=== PATIENT | female | born 1980 ===

== ENCOUNTER 2021-09-15 23:54 | Emergency (ER) | payer SELFPAY ==
[2021-09-16 00:58] LABS: Urine Blood Trace-lysed (Negative); Urine Glucose Negative (Negative); Urine Protein 1+ (Negative); Urine pH 6.5 (5.0-7.0)
[2021-09-16] MEDS ORDERED: TETANUS & DIPHTHERIA TOX,ADULT 0.5 ML VIAL ONE (01:06)
[2021-09-16] MEDS ORDERED: MORPHINE 4 MG/ML SYR ONE (01:06)
[2021-09-16] MEDS ORDERED: LIDOCAINE 1% MPF 5 ML VIAL ONE (02:48)
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
[2021-09-16 05:06] VITALS: TEMP 97.5
[2021-09-16 05:14] VITALS: O2SAT 98
[2021-09-16 05:21] VITALS: BP 119/72
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
--- NOTE | 2021-09-17 11:33 | RAD REPORT ---
EXAM DESCRIPTION: CT - Facial Bones W/ Mpr - 09/16/2021 6:58 am CLINICAL HISTORY: 41 years Female Facial trauma, blunt TECHNIQUE: Axial CT of the facial bones was performed without intravenous contrast with sagittal and coronal reformatted images. The CT study is performed according to ALARA (as low as reasonably achie vable) or ALARA/IMAGE GENTLY, with automatic adjustment of mA and/or kV according to patient size. Performed on: 09/16/2021 at 12:53 AM Comparison: None. FINDINGS: There is subcutaneous emphysema within the left parapharyngeal space of unclear etiology. There is a questionable fracture along the bony wall of the left external auditory canal (series 301, image 57 through 59). Correlate clinically for focal pain in this region. Otherwise, no discrete fra cture is identified. There is also subcutaneous emphysema lateral to the right side maxilla (series 301, image 45). No dis crete fracture is identified in this location. Otherwise, there is no evidence of acute facial bone f racture. The mandible is intact. The temporomandibular joints are preserved. Both globes are intact and are symmetric. The extraocular muscles and optic nerves are symmetric. T he intraconal fat is preserved. There is no evidence of intraorbital emphysema. The orbital floors ar e intact. There is mild mucosal thickening of the paranasal sinuses. The nasal bones are intact. The bony nasal septum is midline. The anterior maxillary spine is intact. Mastoid air cells and middle ear cavities are clear. There is mild soft tissue swelling surrounding the right hemimandible. There are very mild degenerative changes of the visualized cervical spine. IMPRESSION: 1. There is subcutaneous emphysema within the left parapharyngeal space of unclear logan ology. There is a questionable fracture along the bony wall of the left external auditory canal as no wally above. 2. There is also subcutaneous emphysema lateral to the right hemimaxilla. No discrete fracture is i dentified in this location. 3. Mild soft tissue swelling surrounding the right hemimandible. 4. Mild mucosal thickening of the paranasal sinuses. Electronically signed by: Destini Snow DO 09/16/2021 1:41 AM CDT Due to temporary technical issues with the PACS/Fluency reporting system, reports are being signed by the in house radiologist without review as a courtesy to ensure prompt reporting. The interpreting r geovannaogist is fully responsible for the content of the report.
== END 2021-09-16 04:53 | disposition home or self-care (01) ==
LOC: ER 23:54
PROC: 0JQ10ZZ Repair Face Subcutaneous Tissue and Fascia, Open Approach (ICD-10-PCS; principal; 2021-09-16)
DX: S01.81XA Laceration without foreign body of other part of head, initial encounter (principal); S02.82XA Fracture of other specified skull and facial bones, left side, initial encounter for closed fracture; S60.222A Contusion of left hand, initial encounter; Y04.2XXA Assault by strike against or bumped into by another person, initial encounter; Z23 Encounter for immunization; F17.210 Nicotine dependence, cigarettes, uncomplicated
CPT/HCPCS: 70450; 70486; 72125; 76377; 81003; 81025; 90471; 90714; 96372; 99284